=== PATIENT | male | born 1960 | race Caucasian/White ===

== ENCOUNTER 2019-02-21 08:04 | Inpatient (IN) ==
[2019-02-21] MEDS ORDERED: RAPID SEQUENCE INDUCTION BAG ONE (08:09)
[2019-02-21] MEDS ORDERED: PIPERACILL/TAZOBAC CONSULT ACTIVE PRN (08:35)
[2019-02-21] MEDS ORDERED: VANCOMYCIN HCL 2,750 MG in SODIUM CHLORIDE 0.9% 500 ML IV ONE (08:35)
[2019-02-21] MEDS ORDERED: LEVOFLOXACIN/D5W 750 MG/150 ML BAG IV STA (08:35)
[2019-02-21] MEDS ORDERED: PIPERACILLIN/TAZOBACTAM 4.5 GM/120 ML BAG IV ONE (08:35)
[2019-02-21] MEDS ORDERED: VANCOMYCIN CONSULT ACTIVE PRN (08:35)
--- NOTE | 2019-02-21 08:42 | XRay Report ---
SINGLE VIEW CHEST CLINICAL HISTORY: Intubation. Cardiac arrest. FINDINGS: An AP, portable, supine chest radiograph is obtained No prior studies are available for [facility] at the time of dictation. The examination is degraded by portable technique, motion artifact, and patient rotation. An endotracheal tube has been placed. The tip terminates 2 cm above the serjio . The heart is enlarged. There is pulmonary vascular congestion. There are bilateral airspace opaciti es, most confluent at the right lung base. No large pleural effusion or pneumothorax is seen. There i s a nondistracted right lateral 5th rib fracture. IMPRESSION: 1. Cardiomegaly with evidence of congestive failure. 2. Bilateral airspace opacities likely represent a component of interstitial edema. This is most conf luent at the right lung base, and a superimposed infectious/inflammatory pneumonitis is not excluded. Clinical correlation will be required. 3. There is a nondistracted right lateral 5th rib fracture. 4. An endotracheal tube terminates 2 cm above the serjio. Electronically signed by: Herber Diggs M.D. 02/21/2019 8:41 AM
[2019-02-21 08:44] LABS: iSTAT Creatinine 1.9 mg/dl (0.6-1.3); iSTAT Hemoglobin 10.9 g/dl (14.0-18.0); iSTAT Ionized Calcium 1.07 mmol/l (1.12-1.32); iSTAT Potassium 4.3 mEq/L (3.3-5.0)
[2019-02-21 08:47] LABS: Alanine Aminotransferase 661 U/L (12-78); Albumin Level 2.5 gm/dl (3.4-5.0); Blood Urea Nitrogen 37 mg/dl (7-18); Calcium 9.2 mg/dl (8.5-10.1); Carbon Dioxide 31 mmol/L (21-32); Chloride 95 mmol/L (98-107); Est GFR (African American) 35.2; Est GFR (Non-African American) 30.4; Glucose 149 mg/dl (70-99); Potassium 4.4 mmol/L (3.5-5.1); Sodium 144 mmol/L (136-145)
[2019-02-21 08:48] LABS: INR 1.4 (0.9-1.1); Partial Thromboplastin Ratio 1.1; Prothrombin Time 14.4 Seconds (9.0-12.0)
[2019-02-21 08:54] LABS: Albumin Globulin Ratio 0.6 (0.9-2); Alkaline Phosphatase 109 U/L (45-117); Bilirubin,Total 0.7 mg/dl (0.2-1); Creatine Kinase 104 U/L (39-308); Creatine Kinase MB < 1.0 ng/ml (0.5-3.6); Globulin 3.9 gm/dl (2.5-4.0); Total Protein 6.4 gm/dl (6.4-8.2); Troponin I 0.018 ng/ml (0-0.045)
[2019-02-21 08:56] LABS: Hematocrit (blood only) 36.4 % (42-52); Mean Corpuscular Hgb Conc 27.5 g/dL (32-36); Mean Corpuscular Volume 99.7 fL (80-100); Mean Platelet Volume 10.4 fL (7.4-10.4); Nucleated RBC # (auto) 0.12 K/uL (0-0); Nucleated RBC % (auto) 1.1 %; Platelet Count 293 K/uL (130-400); RDW Coefficient of Variation 15.2 % (11.5-14.5); RDW Standard Deviation 56.2 fL (36.4-46.3); Red Blood Count 3.65 M/uL (4.7-6.1); White Blood Count 10.95 K/uL (4.8-10.8)
[2019-02-21] MEDS ORDERED: EPINEPHrine 4 MG in DEXTROSE 5% BRADYCARDIA IV SCH (09:00)
[2019-02-21] MEDS ORDERED: TRAMADOL HCL 50 MG TABLET NG PRN (09:05)
[2019-02-21] MEDS ORDERED: MEPERIDINE HCL 25 MG/ML CARP IV PRN (09:05)
[2019-02-21] MEDS ORDERED: BusPIRone 15 MG TAB NG PRN (09:05)
[2019-02-21] MEDS ORDERED: ARTIFICIAL TEARS OP OINT 3.5 GM TUBE OP PRN (09:05)
[2019-02-21] MEDS ORDERED: DOPAMINE / D5W 400 MG/250 ML BAG IV SCH (09:15)
--- NOTE | 2019-02-21 09:29 | History & Physical Report ---
Date of Service February 21, 2019 Assessment & Plan (1) Sudden cardiac arrest: - Admit to ICU - S/p cardiac arrest now undergoing therapeutic hypothermia - Underwent total of 9 rounds of epinephrine, bicarb, and is now being maintained on dopamine drip. - Maintain ET tube - Being diuresed with IV Lasix as this appears to be partially due to pulmonary congestion. - Starting IV Zosyn, vancomycin until infectious work-up ruled out. - CT head revealing cerebral edema per radiologist - Follow CT abd/pelvis - Discussed with numerous family members who are in the ER waiting room privately by Dr. Nascimento regarding CT imaging results which were called to him directly from the radiologist showing poor prognosis with possible subarachnoid bleed and cerebral edema. - Consider consulting palliative medicine, and pastoral care support (2) Lactic acidosis: - Elevated at 15.6 upon arrival, now s/p resuscitation, will check again now (3) Acute and chronic respiratory failure with hypoxia: - Hx of such secondary to morbid obesity (4) COPD (chronic obstructive pulmonary disease): - Hx of such, uses ventolin as outpatient - Maintains on 3L O2 at baseline, CPAP HS (5) Afib: - Chronic, dx earlier this month during hospital stay at [facility] from February 02- - On xarelto - last took this medication last evening. - hold with possible brain hemmorhage (6) Morbid obesity: - weight upon admit was over 175 kg, BMI not obtained. (7) SABRA (obstructive sleep apnea): - CPAP as above (8) HTN (hypertension): - Maintain BP with continuous BP monitoring - Dopamine infusion on for initially hypotensive. S/p multiple rounds of epi as above. - Takes metoprolol succinate at home, last dose yesterday (9) Obesity hypoventilation syndrome: (10) Elevated transaminase level: - AST = 803 and RIF=197, INR = 1.4, trend morning LFTs (11) DVT prophylaxis: teds, scds, holding xarelto for now Dispo: From home, poor prognosis, likely to be in hospital for several days at least. History of Present Illness Primary Care Provider: Donnie Nayak This is a 58 yo M with PMHx of morbid obesity, acute hypoxic respiratory failure, DM II, COPD on chronic O2, chronic afib on xarelto s/p cardiac arrest and resuscitation. The patient's family was seen in the ER waiting room, including multiple daughters, son, wyatt and brother who supported the history. The patient's brother notes that he has traveled from [place] and arrived in the home yesterday. Wyatt notes that the patient has been having worsening shortness of breath x3 days. They state that yesterday the patient appeared "delirious and out of things". He was having increased work of breathing with minimal activity yesterday. They used a home pulse ox which revealed bradycardia with a heart rate in the 50s yesterday, and oxygenation in the 80s. At that point in time it was in the evening and patient was placed on nasal CPAP, as he has not been able to tolerate CPAP mask due to facial shape. This improved pulse ox readings, and the patient reported that he felt fine and wanted to stay home. They did discuss possibly going to a hospital last evening however the patient thought that he would try through the night. Patient's fianc sleeps in the same room as the patient and reports that last time known well was at 0300. At approximately 6 AM patient was found to be unresponsive by wyatt, brother proceeded to perform CPR. Prolonged transport on the way to [facility] occurred and pt was not intubated during that time due to difficult intubation. Intubation successful here in the ER. Patient's family notes that he was recently admitted from February 02- at [facility] for fluid overload and new onset A. fib where he was placed on xarelto. The patient underwent total of 9 rounds of epinephrine, bicarb, and is now being maintained on dopamine drip. He is being diuresed with IV Lasix as this appears to be partially due to pulmonary congestion. The patient has been administered IV Zosyn, vancomycin until infectious work-up ruled out. Admit to the ICU Allergies Allergy/AdvReac Type Severity Reaction Status Date / Time No Known Allergies Allergy Mild Unverified 12/26/07 07:57 Home Medications Home Medications Medication Instructions Recorded Confirmed Type Albuterol (Proair Hfa) 2 puff INHALATION PRN #0 01/18/15 History FLUTICASONE PROP/SALMETEROL 1 puff INHALATION BID #0 inhaler 01/18/15 History (Advair Diskus 250/50 60 Dose) FUROSEMIDE (Lasix) 80 mg PO DAILY #0 tab 06/23/15 History HOME O2 THERAPY (Oxygen) 4 liters NA UD #0 01/18/15 History Metoprolol Succ (Toprol Xl) 100 mg PO DAILY #0 tab 01/18/15 History (Toprol-Xl ) Nitroglycerin (Nitrostat) 0.4 mg UT PRN #0 btl 01/18/15 History Past Med/Surg History Medical History Lactic acidosis Elevated transaminase level Obesity hypoventilation syndrome HTN (hypertension) Sudden cardiac arrest SABRA (obstructive sleep apnea) Morbid obesity Afib COPD (chronic obstructive pulmonary disease) Acute and chronic respiratory failure with hypoxia Abdominal pain (Acute) Small bowel obstruction (Acute) Surgical History History of hernia surgery (Resolved) Social History Preferred Language: Cameroonian marital status: Single Current Living Situation: Alone current occupational status: unemployed Feels Safe at Home: Yes Smoking Status: Unknown if ever smoked Review of Systems Review of Systems: Unobtainable due to endotracheal tube Physical Exam Physical Exam: General: sedated, not awake, ventilated, morbidly obese Head: Normocephalic, atraumatic ENT: Dilated pupils bilaterally, pharynx not evaluated due to intubated Chest: +ventilated, coarse breath sounds throughout Cardiac: tachycardic, JVD difficult to assess due to body habitus, normal peripheral pulses Abdominal: NABS x 4 quadrants,+ large abdomen + ventral hernia Extremities: Normal inspection, 1+ to 2+ peripheral edema Psych: Sedated so not able to assess Neuro: not awake due to sedation Results & Data Vital Signs (Past 12 Hours) Vital Signs Pulse Pulse Resp BP BP Pulse Ox 02/21/19 09:05 122 H 17 107/73 97 02/21/19 08:50 114 H 119 H 20 106/61 95 02/21/19 08:45 119 H 16 96/55 L 96 02/21/19 08:40 108 H 16 80/49 L 95 02/21/19 08:38 105 H 16 74/54 L 95 02/21/19 08:31 104 H 13 107/57 L 97 02/21/19 08:13 33 L 12 144/118 H 65 L Supervising Physician Co-Signing Physician Notes PA Physician Supervision Note: I interviewed and examined the patient. Discussed with Selene Filipowicz PAC and agree with findings and plan as documented in the note. Any exceptions or clarifications are listed here: None Patient was seen in the emergency department he is intubated. His pupils are dilated and fixed. Apparently he had a fairly prolonged downtime without ventilation due to his body size. Last time known well was around 3 AM. Reportedly his family attempted to do CPR at home but had a difficult time clearing his airway. Additionally EMS services also had challenges. Patient was intubated in the emergency department he is currently being ventilated he is in sinus rhythm with tachycardia he has significant diffuse cerebral changes seen on CT scan initially concern for subarachnoid bleeding however reread feels this may be all just cerebral edema. There is discussion in place with family whether to pursue palliative care at this point time we are going to pursue therapeutic hypothermia and supportive care further ongoing discussions with the family while in the ICU. I did evaluate the patient he is on not responsive to pain pupils are fixed and dilated did not react to light cardiac exam is regular tachycardic his lungs are coarse bilaterally he is morbidly obese with a protuberant abdomen easily felt hernia ventrally. Extremities are with 1-2+ edema his toes are equivocal no other neurological exam will be undertaken Prognosis is extremely poor I will personally discussed this case with intensive care attending as they will be doing the bulk of the management after transition from the ER Documented By: Redd Sanchez PG Care Time/CCT Total # of Minutes Spent Total Time Spent with Patient: Total time spent is greater than 50% in coordination of care (as documented) at patient's floor/unit and/or counseling patient:
[2019-02-21 09:43] LABS: Basophils # (auto) 0.02 K/uL (0-0.2); Basophils % (auto) 0.2 %; Eosinophils # (auto) 0.02 K/uL (0-0.5); Eosinophils % (auto) 0.2 %; Immature Granulocytes # (auto) 0.15 K/uL (0.00-0.02); Immature Granulocytes % (auto) 1.4 %; Lymphocytes # (auto) 1.04 K/uL (1.2-3.4); Lymphocytes % (auto) 9.5 %; Monocytes # (auto) 0.43 K/uL (0.11-0.59); Monocytes % (auto) 3.9 %; Neutrophils # (auto) 9.29 K/uL (1.4-6.5); Neutrophils % (auto) 84.8 %
[2019-02-21] MEDS ORDERED: OPTIRAY 320 125ml IV PRN (09:44)
[2019-02-21 09:45] LABS: Magnesium 3.2 mg/dl (1.8-2.4); Phosphorus 11.4 mg/dl (2.5-4.9)
[2019-02-21] MEDS: MAGNESIUM SULFATE / D5W 1 GM/100 ML BAG IV SCH ×4 (10:16→14:56)
--- NOTE | 2019-02-21 10:27 | CT Scan Report ---
CT ANGIOGRAM OF THE CHEST; CT SCAN OF THE ABDOMEN AND PELVIS WITH IV CONTRAST CLINICAL HISTORY: Cardiac arrest. COMPARISON STUDY: Chest x-ray dated 02/21/2019. Abdominal CT dated 01/18/2015. TECHNIQUE: Following the IV administration of 119 of Optiray 320, CT angiogram of the chest is perfor med from the upper abdomen to the thoracic inlet utilizing the pulmonary embolus protocol. Images are reviewed in the axial, sagittal, coronal planes. 3-D MIPS images are created and assessed. Subsequen tly, CT scan of the abdomen and pelvis was performed from the lung bases to the proximal femora. Imag es are reviewed in the axial, sagittal, and coronal planes. IV contrast was administered without comp lication. A dose lowering technique was utilized adhering to the principles of ALARA. The examination is degraded by large body habitus, and by streak artifact from the body wall abutting the CT gantry. FINDINGS: CHEST: Thyroid: Imaged portions of the thyroid gland are normal in size and attenuation. Thoracic aorta: There is mild atherosclerotic calcification of the thoracic aorta, which is normal in caliber and demonstrates standard 3-vessel arch anatomy. No dissection is seen. Pulmonary vasculature: The pulmonary trunk is normal in caliber. There are no filling defects identif ied in the main, lobar, or proximal segmental pulmonary arteries to indicate pulmonary embolus. Evalu ation of the peripheral branches is degraded by lack of contrast opacification and motion artifact. Heart: The heart is enlarged and without pericardial effusion. The coronary arteries are densely calc ified. Lungs and pleural spaces: The endotracheal tube terminates at the level of the serjio. Evaluation of the lung parenchyma is compromised by motion artifact. There is airspace consolidation seen throughou t the right lung, confluent at the right lung base. Patchy airspace consolidation is also seen throug hout the left lung. Diffuse intralobular septal thickening is noted. No pneumothorax is identified. Mediastinum: There are numerous subcentimeter mediastinal lymph nodes. These are not pathologically e nlarged by size criteria. Calcification containing nodes are noted. Eunice: There calcification containing hilar nodes. No hilar adenopathy is clearly identified. Axillae: There is no axillary lymphadenopathy. Bony thorax: There are acute right anterior 2nd through 6th rib fractures, as well as acute left ante rior 2nd through 7th rib fractures. Several of these are mildly distracted. No lytic or blastic lesio ns are identified. Soft tissues: Gynecomastia is noted. ABDOMEN AND PELVIS: Liver: The contrast-enhanced liver is there is mild lumbosacral spondylosis. Enlarged, measuring 18.5 cm in length. Liver demonstrates diffusely imaged attenuation consistent with hepatic steatosis. The re is no intrahepatic or ductal dilatation. The hepatic veins and portal veins are patent. Gallbladder: There are large calcified gallstones, with no CT evidence of acute cholecystitis. Spleen: Normal in size and attenuation. Pancreas: Unremarkable. Adrenal glands: Degenerative glands appear hyperemic which can be seen in the setting of hypovolemia/ shock. Kidneys: The contrast enhanced kidneys are normal in size and without hydronephrosis. The kidneys enh ance symmetrically. A 13 mm exophytic cyst is noted arising from the right kidney. Abdominal vasculature: The abdominal aorta is normal in course and caliber noting moderate atheroscle rotic calcification. A left femoral central venous catheter is in place. Stomach and bowel: There is a tiny hiatal hernia. The stomach and duodenum otherwise normal in config uration. There is a large complex ventral hernia which contains nonobstructed bowel loops. No bowel o bstruction is seen. There is moderate colonic diverticulosis without CT evidence of acute diverticuli tis. Fecal retention is noted in the right colon. The appendix is well-visualized and normal. Peritoneum: There is no intraperitoneal free air or abdominal ascites. Lymphadenopathy: None. Pelvic viscera: The bladder is decompressed around a Boyce catheter and not well evaluated. The prost ate gland and seminal vesicles are normal as imaged. Skeletal structures: There is mild lumbosacral spondylosis. No lytic or blastic lesions are seen. . IMPRESSION: 1. There is no evidence of central pulmonary embolus in the main, lobar, or proximal segmental pulmon gretta arteries. 2. The endotracheal tube terminates at the level of the serjio. This should be pulled back. 3. Cardiomegaly with evidence of congestive failure. 4. There is bilateral airspace consolidation, right greater than left. This is diffuse throughout the right lung and confluent at the right lung base. Although some of this likely represents interstitia l edema, correlate clinically for evidence of superimposed pneumonia/aspiration pneumonitis. 5. There are numerous bilateral rib fractures as above. 6. There are no acute infectious or inflammatory findings in the abdomen or pelvis. 7. The adrenal glands appear hyperemic. This is a nonspecific finding and can be seen in the setting of hypovolemia/shock. 8. Hepatomegaly and hepatic steatosis. 9. Cholelithiasis. 10. There is a large complex ventral hernia which contains nonobstructed small bowel loops. 11. Moderate colonic diverticulosis without CT evidence of acute diverticulitis. 12. Additional findings as above Electronically signed by: Herber Diggs M.D. 02/21/2019 10:25 AM
--- NOTE | 2019-02-21 10:32 | CT Scan Report ---
CT SCAN OF THE BRAIN WITHOUT IV CONTRAST CLINICAL HISTORY: Status post cardiac arrest. COMPARISON STUDY: No priors. TECHNIQUE: Unenhanced axial CT scan of the brain is performed from the vertex to the skull base. A d ose lowering technique was utilized adhering to the principles of ALARA. CT DOSE: 4388.66 mGy.cm FINDINGS: Brain parenchyma: There is diffuse loss of kevin-white matter differentiation consistent with diffuse cerebral edema. This effaces the cortical sulci and ventricles. No hemorrhage is clearly identified. Intracranial vessels appear hyperdense, likely due to diffuse edema. There is no midline shift. No ex tra-axial fluid collection is seen. There is crowding of the cerebellar tonsils at the foramen magnum . Ventricles, sulci, cisterns: Diminutive. See above. Intracranial vasculature: The visualized intracranial vasculature at the skull base are grossly unrem arkable. Calvarium: A 14 mm lucency within the right frontal convexity is indeterminant and may represent a fo cus of fibrous dysplasia. The calvarium is otherwise intact. Sinuses and mastoids: Trace fluid is seen in the left maxillary antrum. Moderate mucosal thickening i s noted in the ethmoid sinuses. Trace mucosal thickening is seen in the left frontal sinus. There are large bilateral mastoid effusions. Orbits: The bony orbits are grossly intact. IMPRESSION: 1. Findings are consistent with diffuse cerebral edema. 2. There is no clear CT evidence of hemorrhage. 3. There is crowding of the cerebellar tonsils at the foramen magnum which may represent impending he rniation. 4. Large mastoid effusions. Findings were discussed with Dr. Nascimento in the emergency department at the time of interpretation. Electronically signed by: Herber Diggs M.D. 02/21/2019 10:31 AM
--- NOTE | 2019-02-21 10:44 | XRay Report ---
KUB CLINICAL HISTORY: Enteric tube placement. FINDINGS: An AP, portable, supine radiograph of the lower chest and upper abdomen is correlated with abdominal CT performed the same day 02/21/2019. An enteric tube has been placed. The tip of the tube p rojects over the proximal stomach. The side holes are at the level of the diaphragm. There is no evid ence of bowel obstruction. The heart is enlarged. Airspace consolidation is noted throughout the righ t lower lung. Bilateral rib fractures are noted. IMPRESSION: 1. An enteric tube has been placed. The tip terminates below the diaphragm over the proximal stomach. The side holes are located at the level of the diaphragm and this should likely be advanced. 2. There is no evidence of bowel obstruction. 3. Dense airspace consolidation is seen at the right lung base. Electronically signed by: Herber Diggs M.D. 02/21/2019 10:43 AM
[2019-02-21] MEDS ORDERED: PERFLUTREN LIPID MICROSPHERE (DEFINITY) IV ONE (10:46)
[2019-02-21 10:50] LABS: Aspartate Aminotransferase 803 U/L (15-37)
[2019-02-21] MEDS ORDERED: GLUCOSE 10 TABS/TUBE PO PRN (11:12)
[2019-02-21] MEDS ORDERED: DEXTROSE 50% 50 ML SYRINGE IV PRN (11:12)
[2019-02-21] MEDS ORDERED: CARBOHYDRATES FOR HYPOGLYCEMIA PO PRN (11:12)
[2019-02-21] MEDS ORDERED: GLUCOSE 40% GEL 15 GM TUBE PO PRN (11:12)
[2019-02-21] MEDS ORDERED: GLUCAGON FOR INJ 1 MG VIAL SQ PRN (11:12)
[2019-02-21] MEDS ORDERED: PHARMACY GLYCEMIC MGMT CONSULT PRN (11:24)
--- NOTE | 2019-02-21 11:45 | Critical Care Consultation ---
Date of Consultation February 21, 2019 Assessment & Plan (1) Admitted to intensive care unit: 58 years old male morbidly obese previous history of atrial fibrillation was recently discharged from the [facility] was brought into the hospital after cardiopulmonary arrest. Neuro: The patient is post cardiopulmonary arrest. It seems he was hypoxemic for sometimes and currently he is comatose pupils are dilated and fixed and now CT of the head revealed cerebral edema and impending herniation. The patient is not sedated. Respiratory: The patient is post cardiopulmonary arrest. He is in acute respiratory failure. Currently the patient remains on ventilator on 100% FiO2 and 10 of PEEP. He is oxygenating around 92 to 93%. We will repeat the ABG will put a close monitoring on the patient. Patient might be chronically hypercapnic because his bicarb is also elevated. The patient also has a history of obstructive sleep apnea syndrome along with obesity related hypoventilation syndrome and he is on CPAP at home. Cardiac: The patient has history of atrial fibrillation. He was recently started on anticoagulation. According to the family members he has been sick for at least 3 days with increasing shortness of breath hypoxemic bradycardic and also delirious but he did not want to come to the hospital and he coded. Postcode he was brought into the hospital intubated and currently he remains on a ventilator. He is also on hypothermia protocol. Family members were informed about the condition and they would like everything to be done at this stage. He will be also ruled out for myocardial infarction. But at this stage it seems he has got pulmonary edema and he has been also diuresed with the Lasix. We will also consult cardiology. The patient was on Xarelto. GI: The patient is morbidly obese. He probably has upper GI bleed because when we put the NG tube there was so much blood has come out. We also going to start him on Protonix IV drip. The bleeding could be related to Xarelto as well. The Xarelto is on hold. His transaminase levels are also elevated. Renal: The patient is putting out good urine. His BUN/creatinine is elevated to 41/2.41. We are going to monitor him very closely. He was hypotensive and was started on dopamine. We have changed dopamine to Levophed. We are monitoring his blood pressure with a map of 65. I have also noticed that his bicarb is 35 so he must be chronically hypercapnic. He has also history of's sleep apnea syndrome and he is on home CPAP. Hematology: The patient has normal white count 10.69 and stable H&H and stable platelets. ID: The patient was empirically started on broad-spectrum antibiotics because of elevated lactate and hypotension but I feel as all related to his current cardiopulmonary arrest secondary to cardiac history and possibility of congestive heart failure which he would not take care of it. We will monitor the lactic acid which has been drawn again and we are waiting for the results. Endocrine: The patient is with hyperglycemia. He is on ICU glycemic control. (2) Acute anoxic encephalopathy: (3) Cardiopulmonary arrest with successful resuscitation: (4) Lactic acidosis: (5) DVT prophylaxis: (6) SABRA (obstructive sleep apnea): (7) Acute and chronic respiratory failure with hypoxia: (8) COPD (chronic obstructive pulmonary disease): (9) Afib: (10) Morbid obesity: History of Present Illness Reason for Consultation: Cardiopulmonary arrest Requesting Physician: Jose Elias Abdullahi MD Attending Physician: Jose Elias Abdullahi MD History of Present Illness This is a 58 yo M with PMHx of morbid obesity, acute hypoxic respiratory failure, DM II, COPD on chronic O2, chronic afib on xarelto s/p cardiac arrest and resuscitation. The patient's family was seen in the ER waiting room, including multiple daughters, son, wyatt and brother who supported the history. The patient's brother notes that he has traveled from [place] and arrived in the home yesterday. Wyatt notes that the patient has been having worsening shortness of breath x3 days. They state that yesterday the patient appeared "delirious and out of things". He was having increased work of breathing with minimal activity yesterday. They used a home pulse ox which revealed bradycard ia with a heart rate in the 50s yesterday, and oxygenation in the 80s. At that point in time it was in the evening and patient was placed on nasal CPAP, as he has not been able to tolerate CPAP mask due to facial shape. This improved pulse ox readings, and the patient reported that he felt fine and wanted to stay home. They did discuss possibly going to a hospital last evening however the patient thought that he would try through the night. Patient's wyatt sleeps in the same room as the patient and reports that last time known well was at 0300. At approximately 6 AM patient was found to be unresponsive by wyatt, brother proceeded to perform CPR. Prolonged transport on the way to [facility] occurred and pt was not intubated during that time due to difficult intubation. Intubation successful here in the ER. Patient's family notes that he was recently admitted from February 02- at [facility] for fluid overload and new onset A. fib where he was placed on xarelto. The patient underwent total of 9 rounds of epinephrine, bicarb, and is now being maintained on dopamine drip. He is being diuresed with IV Lasix as this appears to be partially due to pulmonary congestion. The patient has been unresponsive with dilated and fixed pupils. Currently he is not sedated he remains on a ventilator. He is not responsive to any painful stimuli. He is breathing with a ventilator. Also he is on Levophed for the pressors. We have reviewed his CT scan of the head which revealed diffuse edema impending herniation. He has NG tube and he has been bleeding from that as well. Patient was recently started on Xarelto because of atrial fibrillation. Allergies Allergy/AdvReac Type Severity Reaction Status Date / Time No Known Allergies Allergy Mild Unverified 12/26/07 07:57 Home Medications Home Medications Medication Instructions Recorded Confirmed Type Albuterol (Proair Hfa) 2 puff INHALATION PRN #0 01/18/15 History FLUTICASONE PROP/SALMETEROL 1 puff INHALATION BID #0 inhaler 01/18/15 History (Advair Diskus 250/50 60 Dose) FUROSEMIDE (Lasix) 80 mg PO DAILY #0 tab 01/18/15 History HOME O2 THERAPY (Oxygen) 4 liters NA UD #0 01/18/15 History Metoprolol Succ (Toprol Xl) 100 mg PO DAILY #0 tab 01/18/15 History (Toprol-Xl ) Nitroglycerin (Nitrostat) 0.4 mg UT PRN #0 btl 01/18/15 History Patient History Medical History Lactic acidosis Elevated transaminase level Obesity hypoventilation syndrome HTN (hypertension) Sudden cardiac arrest SABRA (obstructive sleep apnea) Morbid obesity Afib COPD (chronic obstructive pulmonary disease) Acute and chronic respiratory failure with hypoxia Abdominal pain (Acute) Small bowel obstruction (Acute) Surgical History History of hernia surgery (Resolved) Social History Preferred Language: Filipino marital status: Single Current Living Situation: Alone current occupational status: unemployed Feels Safe at Home: Yes Smoking Status: Unknown if ever smoked Review of Systems Review of Systems: Unable to obtain review of systems because of current medical condition and mental status. Physical Exam Physical Exam: General: Comatose morbidly obese male, not awake, ventilated. The patient is not on any sedation. Head: Normocephalic, atraumatic ENT: Dilated pupils bilaterally and there are fixed, pharynx not evaluated due to intubated Chest: +ventilated, coarse breath sounds throughout, diminished breath sound Cardiac: tachycardic, JVD difficult to assess due to body habitus, distant heart sounds secondary to body habitus. Abdominal: Morbidly obese abdomen soft, nontender, unable to palpate any organs and a big scar paraumbilical from before. Extremities: Normal inspection, 1+ to 2+ peripheral edema Psych: Unable to assess because of current medical condition. The patient is comatose. Neuro: The patient remains comatose not able to assess at this stage. Skin: No rash, no lesions seen. Results & Data Vital Signs (Past 12 Hours) Vital Signs Temp Pulse Pulse Resp BP BP Pulse Ox 02/21/19 10:20 112 H 17 103/56 L 94 02/21/19 10:05 35.5 C L 111 H 16 111/56 L 93 02/21/19 09:05 122 H 17 107/73 97 02/21/19 08:50 114 H 119 H 20 106/61 95 02/21/19 08:45 119 H 16 96/55 L 96 02/21/19 08:40 108 H 16 80/49 L 95 02/21/19 08:38 105 H 16 74/54 L 95 02/21/19 08:31 104 H 13 107/57 L 97 02/21/19 08:13 33 L 12 144/118 H 65 L Laboratory Results Abnormal lab results 02/21/19 02/21/19 02/21/19 Range/Units 08:15 08:20 08:20 WBC 10.95 H (4.8-10.8) K/uL RBC 3.65 L (4.7-6.1) M/uL Hgb 10.0 L (14.0-18.0) g/dL POC Hgb (14.0-18.0) g/dl Hct 36.4 L (42-52) % POC Hct (42-52) % MCHC 27.5 L (32-36) g/dL RDW Std Deviation 56.2 H (36.4-46.3) fL RDW Coeff of Liyah 15.2 H (11.5-14.5) % Immature Gran # (Auto) 0.15 H (0.00-0.02) K/uL Neut # (Auto) 9.29 H (1.4-6.5) K/uL Lymph # (Auto) 1.04 L (1.2-3.4) K/uL Absolute Nucleated RBC 0.12 H (0-0) K/uL PT 14.4 H (9.0-12.0) Seconds INR 1.4 H (0.9-1.1) POC Chloride (101-112) mEq/L Chloride (98-107) mmol/L POC Total CO2 (24-31) mEq/l Anion Gap (3-11) POC BUN (7-18) mg/dl BUN (7-18) mg/dl Creatinine (0.6-1.4) mg/dl POC Creatinine (0.6-1.3) mg/dl Glucose (70-99) mg/dl POC Glucose (other) (70-99) mg/dl Lactate 15.6 H* (0.4-2.0) mmol/L POC Ioniz Calcium Ilia (1.12-1.32) mmol/l Phosphorus (2.5-4.9) mg/dl Magnesium (1.8-2.4) mg/dl AST (15-37) U/L ALT (12-78) U/L Albumin (3.4-5.0) gm/dl Albumin/Globulin Ratio (0.9-2) 02/21/19 02/21/19 02/21/19 Range/Units 08:20 08:20 08:29 WBC (4.8-10.8) K/uL RBC (4.7-6.1) M/uL Hgb (14.0-18.0) g/dL POC Hgb 10.9 L (14.0-18.0) g/dl Hct (42-52) % POC Hct 32 L (42-52) % MCHC (32-36) g/dL RDW Std Deviation (36.4-46.3) fL RDW Coeff of Liyah (11.5-14.5) % Immature Gran # (Auto) (0.00-0.02) K/uL Neut # (Auto) (1.4-6.5) K/uL Lymph # (Auto) (1.2-3.4) K/uL Absolute Nucleated RBC (0-0) K/uL PT (9.0-12.0) Seconds INR (0.9-1.1) POC Chloride 92 L (101-112) mEq/L Chloride 95 L (98-107) mmol/L POC Total CO2 33 H (24-31) mEq/l Anion Gap 18.0 H (3-11) POC BUN 43 H (7-18) mg/dl BUN 37 H (7-18) mg/dl Creatinine 2.30 H (0.6-1.4) mg/dl POC Creatinine 1.9 H (0.6-1.3) mg/dl Glucose 149 H (70-99) mg/dl POC Glucose (other) 148 H (70-99) mg/dl Lactate (0.4-2.0) mmol/L POC Ioniz Calcium Ilia 1.07 L (1.12-1.32) mmol/l Phosphorus 11.4 H (2.5-4.9) mg/dl Magnesium 3.2 H (1.8-2.4) mg/dl AST 803 H (15-37) U/L ALT 661 H (12-78) U/L Albumin 2.5 L (3.4-5.0) gm/dl Albumin/Globulin Ratio 0.6 L (0.9-2) // Range/Units 11:40 WBC (4.8-10.8) K/uL RBC 3.84 L (4.7-6.1) M/uL Hgb 10.7 L (14.0-18.0) g/dL POC Hgb (14.0-18.0) g/dl Hct 37.2 L (42-52) % POC Hct (42-52) % MCHC 28.8 L (32-36) g/dL RDW Std Deviation 54.1 H (36.4-46.3) fL RDW Coeff of Liyah 15.1 H (11.5-14.5) % Immature Gran # (Auto) (0.00-0.02) K/uL Neut # (Auto) (1.4-6.5) K/uL Lymph # (Auto) (1.2-3.4) K/uL Absolute Nucleated RBC (0-0) K/uL PT (9.0-12.0) Seconds INR (0.9-1.1) POC Chloride (101-112) mEq/L Chloride (98-107) mmol/L POC Total CO2 (24-31) mEq/l Anion Gap (3-11) POC BUN (7-18) mg/dl BUN (7-18) mg/dl Creatinine (0.6-1.4) mg/dl POC Creatinine (0.6-1.3) mg/dl Glucose (70-99) mg/dl POC Glucose (other) (70-99) mg/dl Lactate (0.4-2.0) mmol/L POC Ioniz Calcium Ilia (1.12-1.32) mmol/l Phosphorus (2.5-4.9) mg/dl Magnesium (1.8-2.4) mg/dl AST (15-37) U/L ALT (12-78) U/L Albumin (3.4-5.0) gm/dl Albumin/Globulin Ratio (0.9-2) Diagnostic Findings CT SCAN OF THE BRAIN WITHOUT IV CONTRAST CLINICAL HISTORY: Status post cardiac arrest. COMPARISON STUDY: No priors. TECHNIQUE: Unenhanced axial CT scan of the brain is performed from the vertex to the skull base. A dose lowering technique was utilized adhering to the principles of ALARA. CT DOSE: 4388.66 mGy.cm FINDINGS: Brain parenchyma: There is diffuse loss of kevin-white matter differentiation co nsistent with diffuse cerebral edema. This effaces the cortical sulci and ventricles. No hemorrhage is clearly identified. Intracranial vessels appear hyperdense, likely due to diffuse edema. There is no midline shift. No extra- axial fluid collection is seen. There is crowding of the cerebellar tonsils at the foramen magnum. Ventricles, sulci, cisterns: Diminutive. See above. Intracranial vasculature: The visualized intracranial vasculature at the skull base are grossly unremarkable. 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 The calvarium is otherwise intact. Sinuses and mastoids: Trace fluid is seen in the left maxillary antrum. Moderate mucosal thickening is noted in the ethmoid sinuses. Trace mucosal thickening is seen in the left frontal sinus. There are large bilateral mastoid effusions. Orbits: The bony orbits are grossly intact. IMPRESSION: 1. Findings are consistent with diffuse cerebral edema. 2. There is no clear CT evidence of hemorrhage. 3. There is crowding of the cerebellar tonsils at the foramen magnum which may represent impending herniation. 4. Large mastoid effusions. Findings were discussed with Dr. Nascimento in the emergency department at the time of interpretation. Electronically signed by: Herber Diggs M.D. 02/21/2019 10:31 AM Medications Administered Current Inpatient Medications Buspirone HCl (Buspar) 60 mg NG ONCE PRN PRN Reason: For Shivering x 1 dose Stop: 03/23/19 09:04 Dextrose (Dextrose 50%) 25 - 50 ml IV UD PRN; Protocol PRN Reason: Hypoglycemia Protocol Stop: 03/23/19 11:11 Glucagon (Glucagen) 1 mg SQ UD PRN; Protocol PRN Reason: Hypoglycemia Protocol Stop: 03/23/19 11:11 Glucose (Dex4 Glucose) 4 - 8 tabs PO UD PRN; Protocol PRN Reason: Hypoglycemia Protocol Stop: 03/23/19 11:11 Glucose (Glucose 40%) 15 - 30 gm PO UD PRN; Protocol PRN Reason: Hypoglycemia Protocol Stop: 03/23/19 11:11 Epinephrine HCl 4 mg/ Dextrose 254 mls @ 0 mls/hr IV .Q0M VERONICA; Protocol Stop: 03/23/19 08:59 Dopamine HCl/Dextrose (Dopamine / D5w) 400 mg in 250 mls @ 32.813 mls/hr IV .Q7H38M VERONICA; Protocol Stop: 03/23/19 09:14 Last Titration: 02/21/19 08:40 Dose: 15 mcg/kg/min, 98.4 mls/hr Documented by: Magnesium Sulfate/Dextrose (Magnesium Sulfate / D5w) 1 gm in 100 mls @ 100 mls/hr IV Q1H VERONICA Stop: 02/21/19 13:29 Last Admin: 02/21/19 10:16 Dose: 100 mls/hr Documented by: Norepinephrine Bitartrate 8 mg (/ Dextrose) 508 mls @ 0 mls/hr IV .Q0M VERONICA; Protocol Stop: 03/23/19 11:14 Insulin Aspart (Novolog Flexpen) 0 units SC Q4H VERONICA Stop: 03/23/19 11:59 Ioversol (Optiray 320 125ml) 119 ml IV ONCE PRN PRN Reason: Interaction Checking Stop: 02/25/19 09:43 Last Admin: 02/21/19 09:45 Dose: 119 ml Documented by: Meperidine HCl (Demerol) 25 mg IV Q2H PRN PRN Reason: Shivering Stop: 03/07/19 09:04 Miscellaneous (Carbohydrates For Hypoglycemia) 15 - 30 gm PO UD PRN PRN Reason: Hypoglycemia Treatment Stop: 03/23/19 11:11 Miscellaneous Information (Consult) 1 ea N/A UD PRN PRN Reason: Consult Stop: 03/23/19 08:34 Miscellaneous Information (Consult) 1 ea N/A UD PRN PRN Reason: Consult Stop: 03/23/19 08:34 Miscellaneous Information (Consult Glycemic Management Pharmacy) 1 ea N/A UD PRN; Protocol PRN Reason: Consult Stop: 03/23/19 11:23 Multi-Ingredient Cream (Lacri-Lube) 1 appln OP Q2H PRN PRN Reason: eye protection Stop: 03/23/19 09:04 Tramadol HCl (Ultram) 50 mg NG Q6H PRN PRN Reason: Shivering Stop: 03/23/19 09:04 PG Care Time/CCT Total # of Minutes Spent Total Time Spent: 75 Total Time Spent with Patient: Total time spent is greater than 50% in coordination of care (as documented) at patient's floor/unit and/or counseling patient: I have also had a long discussion with the family members and also other medical physicians. Critical Care Time: Yes Total Critical Care Time: 75
[2019-02-21 11:59] LABS: Hematocrit (blood only) 37.2 % (42-52); Hemoglobin 10.7 g/dL (14.0-18.0); Mean Corpuscular Hgb Conc 28.8 g/dL (32-36); Mean Corpuscular Volume 96.9 fL (80-100); Mean Platelet Volume 9.9 fL (7.4-10.4); Platelet Count 232 K/uL (130-400); RDW Coefficient of Variation 15.1 % (11.5-14.5); RDW Standard Deviation 54.1 fL (36.4-46.3); Red Blood Count 3.84 M/uL (4.7-6.1); White Blood Count 10.69 K/uL (4.8-10.8)
[2019-02-21] MEDS ORDERED: INSULIN ASPART 100 UNITS/ML 3 ML PEN SC SCH (12:00)
[2019-02-21 12:10] LABS: BUN Creatinine Ratio 16.9 (10-20); Blood Urea Nitrogen 41 mg/dl (7-18); Calcium 9.1 mg/dl (8.5-10.1); Carbon Dioxide 35 mmol/L (21-32); Chloride 91 mmol/L (98-107); Est GFR (African American) 33.3; Est GFR (Non-African American) 28.7; Glucose 179 mg/dl (70-99); Magnesium 2.8 mg/dl (1.8-2.4); Potassium 4.1 mmol/L (3.5-5.1); Sodium 140 mmol/L (136-145)
[2019-02-21 12:17] LABS: Eosinophils # (auto) 0.01 K/uL (0-0.5); Eosinophils % (auto) 0.1 %; Immature Granulocytes # (auto) 0.04 K/uL (0.00-0.02); Immature Granulocytes % (auto) 0.4 %; Lymphocytes # (auto) 0.45 K/uL (1.2-3.4); Lymphocytes % (auto) 4.2 %; Monocytes # (auto) 0.86 K/uL (0.11-0.59); Neutrophils # (auto) 9.33 K/uL (1.4-6.5); Neutrophils % (auto) 87.3 %
[2019-02-21] MEDS: NOREPINEPHRINE BIT INJ 8 MG in DEXTROSE 5% 500 ML IV SCH ×2 (12:20→14:56)
--- NOTE | 2019-02-21 12:24 | XRay Report ---
KUB HISTORY: NG tube placement. COMPARISON: KUB 02/21/2019. FINDINGS: The bowel gas pattern is unremarkable. There are no dilated loops of small bowel to suggest an obstruction. No renal calculi. No ureteral calculi. No pneumoperitoneum or pneumatosis. Nasogast jurgen tube is been advanced and now terminates in the distal body of the stomach. The heart remains enl arged. IMPRESSION: Nasogastric tube terminates in the distal body of the stomach. Electronically signed by: Laci Sarabia M.D. 02/21/2019 12:22 PM
--- NOTE | 2019-02-21 12:26 | XRay Report ---
XR chest 1V portable HISTORY: respiratory failure COMPARISON: Chest 02/21/2019. FINDINGS: Endotracheal tube terminates 3 cm from the serjio. Nasogastric tube terminates below the di aphragm. No pneumothorax. Cardiomegaly and interstitial pulmonary edema persists. There are small srinath ateral pleural effusions and bibasilar densities. The patient's bilateral rib fractures are better ap preciated on the same day chest CT. IMPRESSION: 1. Interval progression of the pulmonary edema. 2. Small bilateral pleural effusions and bibasilar densities persist. 3. Satisfactory support line placement. Electronically signed by: Laci Sarabia M.D. 02/21/2019 12:24 PM
[2019-02-21 12:42] LABS: iSTAT Allen Test Pass; iSTAT Art Bld Gas pCO2 Correct 73 mmHg (35-46); iSTAT Art Bld Gas pH Corrected 7.306 (7.35-7.45); iSTAT Arterial Blood Gas HCO3 37 meg/L (19-24); iSTAT Arterial Blood Gas pCO2 79 mmHg (35-46); iSTAT Arterial Blood Gas pH 7.28 (7.35-7.45); iSTAT Carbon Dioxide 39 mEq/l (24-31); iSTAT Site R Radial
[2019-02-21 12:42] LABS: iSTAT Allen Test Pass; iSTAT Art Bld Gas pCO2 Correct 107 mmHg (35-46); iSTAT Art Bld Gas pH Corrected 7.147 (7.35-7.45); iSTAT Arterial Blood Gas HCO3 37 meg/L (19-24); iSTAT Arterial Blood Gas pCO2 110 mmHg (35-46); iSTAT Arterial Blood Gas pH 7.14 (7.35-7.45); iSTAT Carbon Dioxide > 40 mEq/l (24-31); iSTAT FiO2 100 %; iSTAT Site L Radial
[2019-02-21] MEDS ORDERED: PATIENT'S HEIGHT AND/OR WEIGHT NEEDED SCH (13:00)
--- NOTE | 2019-02-21 14:02 | Death Summary ---
Date of Service February 21, 2019 Pronouncement Note Date and Time of Date of : 02/21/19 Time of : 13:50 PCOD Preliminary cause of : Cerebral edema Contributing Factors (1) Sudden cardiac arrest: (2) Lactic acidosis: (3) Acute and chronic respiratory failure with hypoxia: (4) COPD (chronic obstructive pulmonary disease): (5) Afib: (6) Morbid obesity: (7) SABRA (obstructive sleep apnea): (8) HTN (hypertension): (9) Obesity hypoventilation syndrome: (10) Elevated transaminase level: (11) DVT prophylaxis: Summary Additional details: PT had a prolonged pre hospital resuscitation and difficult airway. Upon arrival did have airway secured. INitial CT scan of head suggested diffuse cerebral edema and concern for imminent herniation. Pt has therapeutic hypothermia initiated, family decided to pursue comfort measures, pt prior to that began to have progressive bradycardia and lost blood pressure and saturation, family was in the room and decided to not initiate resuscitation attempts, pt was removed from ventilator and did not have any spontaneous respirations or heart tones Additional Data Confirmation of : no pulse, no respirations, no heart sounds and pupils fixed and dilated Family: at bedside Attending/PCP notified?: Yes Attending physician: Redd Sanchez MD Was code activated?: No Autopsy requested?: No garment examiner notified?: Yes Organ bank notified?: Yes Advance directives: No Supervising Physician Co-Signing Physician Notes PA Physician Supervision Note: I interviewed and examined the patient. Discussed with Selene HOANG and agree with findings and plan as documented in the note. Any exceptions or clarifications are listed here: None Patient was seen in the emergency department he is intubated. His pupils are dilated and fixed. Apparently he had a fairly prolonged downtime without ventilation due to his body size. Last time known well was around 3 AM. Reportedly his family attempted to do CPR at home but had a difficult time clearing his airway. Additionally EMS services also had challenges. Patient was intubated in the emergency department he is currently being ventilated he is in sinus rhythm with tachycardia he has significant diffuse cerebral changes seen on CT scan initially concern for subarachnoid bleeding however reread feels this may be all just cerebral edema. There is discussion in place with family whether to pursue palliative care at this point time we are going to pursue therapeutic hypothermia and supportive care further ongoing discussions with the family while in the ICU. I did evaluate the patient he is on not responsive to pain pupils are fixed and dilated did not react to light cardiac exam is regular tachycardic his lungs are coarse bilaterally he is morbidly obese with a protuberant abdomen easily felt hernia ventrally. Extremities are with 1-2+ edema his toes are equivocal no other neurological exam will be undertaken Prognosis is extremely poor I will personally discussed this case with intensive care attending as they will be doing the bulk of the management after transition from the ER Documented By: Redd Sanchez
--- NOTE | 2019-02-21 14:08 | Emergency Department Note ---
Entered by Estella Morel acting as a scribe for History of Present Illness General Chief complaint: Cardiac Arrest/CPR Source: EMS Mode of arrival: EMS Limitations: other (unresponsive) History of Present Illness Location: chest Pain Consistency: + other (episode) Quality: + other (possible cardiac arrest) Associated symptoms: + other (loss of consciousness, loss of pulse, unresponsive) The patient is a 58 year old male that is presenting to the Emergency Room with complaints of an episode of suspected cardiac arrest that occurred over night. According to EMS, the patient was found by his girlfriend 1.5 hours ago around 0630 this morning. EMS reports that the patient's family stated that he was last known well 5 hours ago around 0300 this morning. EMS states that the patient's girlfriend noted that the patient was warm when she found him. EMS reports that the patients brother attempted CPR on the patient while they waited for EMS to arrive. The patient's brother reports that the patient measured his O2 saturation level last night and noted that it was around 47% at that time. His brother states that they were preparing to bring the patient to the ED as he had some associated disorientation and confusion. His brother notes that just prior to leaving the house the patient's O2 saturation level damion to 85%. His brother states that they decided to wait and see how the patient felt in the morning because the patient seemed to have improved. His brother reports that he spoke with his brother around 0300 this morning. His brother states that he was then woken up by the patient's girlfriend and informed of the patient's condition around 0630, EMS states that the patient received 7 doses of epinephrine and 3 bicarb prior to arrival to the ED. EMS notes that the patient was in sinus rhythm at a rate of 88bpm on arrival to the ER but states that the patient was in asystole when he was picked up at his home. Upon arrival, the patients BP was 144/118, pulse 33 bpm and O2 Sat 65% on mechanical vent. 25mg-Atropine was pushed at this time. CPR was started at 0816 when no pulse was found. A code blue was called 0817. Cardioversion occurred at 0824. A pulse was found at 0825. The patient received 3 doses of epi during CPR as well as 1 dose of bicarb. The HPI and ROS are limited secondary to the patients unresponsive status. Home Medications Home Medications Medication Instructions Recorded Confirmed Type Albuterol (Proair Hfa) 2 puff INHALATION PRN #0 01/18/15 History FLUTICASONE PROP/SALMETEROL 1 puff INHALATION BID #0 inhaler 01/18/15 History (Advair Diskus 250/50 60 Dose) FUROSEMIDE (Lasix) 80 mg PO DAILY #0 tab 01/18/15 History HOME O2 THERAPY (Oxygen) 4 liters NA UD #0 01/18/15 History Metoprolol Succ (Toprol Xl) 100 mg PO DAILY #0 tab 01/18/15 History (Toprol-Xl ) Nitroglycerin (Nitrostat) 0.4 mg UT PRN #0 btl 01/18/15 History Allergies Allergy/AdvReac Type Severity Reaction Status Date / Time No Known Allergies Allergy Mild Unverified 12/26/07 07:57 Past Med/Surg History Medical History Lactic acidosis Elevated transaminase level Obesity hypoventilation syndrome HTN (hypertension) Sudden cardiac arrest SABRA (obstructive sleep apnea) Morbid obesity Afib COPD (chronic obstructive pulmonary disease) Acute and chronic respiratory failure with hypoxia Abdominal pain (Acute) Small bowel obstruction (Acute) Surgical History History of hernia surgery (Resolved) Social History Preferred Language: [place]an marital status: Single Current Living Situation: Alone current occupational status: unemployed Feels Safe at Home: Yes Smoking Status: Unknown if ever smoked Review of Systems The HPI and ROS are limited secondary to the patient's unresponsive status. Physical Exam Vital Signs Vital Signs - 24 hr 02/21/19 08:09 02/21/19 08:13 02/21/19 08:31 Sepsis Recent Fever Within 48 Hours No Sepsis New/Unexplained Change in Mental Status No Sepsis Action Taken by Nursing No Action Required End-Tidal CO2 Pulse Rate 33 L Pulse Rate [Apical] 104 H Respiratory Rate 12 13 Respiratory Effort / Characteristics Mechanically Ventilated Mechanically Ventilated Mechanically Ventilated Blood Pressure 144/118 H Blood Pressure [Right Arm] 107/57 L Blood Pressure Mean 126 Blood Pressure Mean [Right Arm] 73 Pulse Oximetry 65 L 97 Oxygen Delivery Method Mechanical Vent Mechanical Vent Fraction of Inspired Oxygen 02/21/19 08:38 02/21/19 08:40 02/21/19 08:45 Sepsis Recent Fever Within 48 Hours Sepsis New/Unexplained Change in Mental Status Sepsis Action Taken by Nursing End-Tidal CO2 Pulse Rate Pulse Rate [Apical] 105 H 108 H 119 H Respiratory Rate 16 16 16 Respiratory Effort / Characteristics Mechanically Ventilated Mechanically Ventilated Mechanically Ventilated Blood Pressure Blood Pressure [Right Arm] 74/54 L 80/49 L 96/55 L Blood Pressure Mean Blood Pressure Mean [Right Arm] 60 59 68 Pulse Oximetry 95 95 96 Oxygen Delivery Method Mechanical Vent Mechanical Vent Mechanical Vent Fraction of Inspired Oxygen 02/21/19 08:50 02/21/19 09:05 Sepsis Recent Fever Within 48 Hours Sepsis New/Unexplained Change in Mental Status Sepsis Action Taken by Nursing End-Tidal CO2 70 Pulse Rate 114 H Pulse Rate [Apical] 119 H 122 H Respiratory Rate 20 17 Respiratory Effort / Characteristics Mechanically Ventilated Blood Pressure Blood Pressure [Right Arm] 106/61 107/73 Blood Pressure Mean Blood Pressure Mean [Right Arm] 76 84 Pulse Oximetry 95 97 Oxygen Delivery Method Mechanical Vent Mechanical Vent Fraction of Inspired Oxygen 100 GENERAL: Obtunded, airway in place HENT: Normocephalic, atraumatic. Oropharynx unremarkable. EYES: Normal conjunctiva. Sclera non-icteric. NECK: Supple. No nuchal rigidity. FROM. No JVD. RESPIRATORY: Clear to auscultation. CARDIAC: Regular rate, normal rhythm. Extremities warm and well perfused. Pulses equal. ABDOMEN: Soft, non-distended. No tenderness to palpation. No rebound or guarding. No masses. RECTAL: Deferred. MUSCULOSKELETAL: Chest examination reveals no tenderness. The back is symmetrical on inspection without obvious abnormality. There is no CVA tenderness to palpation. No joint edema. LOWER EXTREMITIES: Calves are equal size bilaterally and non-tender. No edema. No discoloration. NEURO: Normal sensorium. No sensory or motor deficits noted. SKIN: No rash or jaundice noted. Procedures Central Line Placement Left Femoral: Time Out Performed: Yes Patient Placed on Monitor/Pulse Ox: Yes MD Prep: mask, gown and gloves Central Line Prep: Povidone-Iodine 1%, Chlorhexidine scrub and sterile drapes applied Local Anesthetic: with epi and with bicarb Ultrasound Used for Placement: Yes Central Line Lumen Inserted: triple Post Procedure: sutured in place, good blood return, all ports aspirated, flushed, capped and sterile dressing applied Post Procedure X-Ray: tip of catheter in good position Patient Tolerated Procedure: well and no complications Complications: none Intubation Time out performed: Yes sedative: none paralytic: other (none) Laryngoscope: fiber optic video scope ET Tube Size: 7.5 ET Tube Uncuffed: No Tube Secured Depth (cm): 22 Tube Secured Location: lips Tube Placement Confirmation: visualized tube passing through cords, equal breath sounds bilaterally, no breath sounds over epigastrium and confirmation by capnometry Patient Tolerated Procedure: well Intubation Complications: none Course 0740: I was contacted by EMS en route to the ED and called a Code Robbie at this time. The patient will be placed in room B01. 0805: The patient was evaluated in room B01. A complete history and physical examination was performed. I intubated the patient at this time with the Respiratory Care team present. 0816: CPR was started at this time as the patient was asystolic. 0817: Code Blue was called for the patient at this time. 0824: Cardioversion was completed at this time. 0825:A pulse was obtained at this time and CPR was discontinued. 3 epis and 1 bicarb were pushed while the patient was asystolic. 0831: I discussed the patients case with Dr. Mcdonnell, ICU, who asked that a cooling protocol be started and that a central line be placed prior to evaluation. She asked that Cardiology be paged. 0840: The patient's family was brought in to speak to the patient at this time. 0845: I placed a central line in the patient's left femoral vein at this without any complications. 0907: I discussed the patients case with Dr. Amaya, Cardiology, who will evaluate the patient further. 0922: I discussed the patients case with Dr. Gonsalves, [facility], who will evaluate the patient for further management and care. 0916: I updated the patients family on the patients current lab and imaging results. They are amenable to the treatment plan. 1027: I updated the patients family on the patients current results. They verbalized understanding of the patients current prognosis. 1030: I discussed the patient's CT head results with the radiologist who stated the patient did not appear to have a brain bleed on closer examination of his scan. 1031: I updated Dr. Mcdonnell, ICU, on the patients current status and on my discussion with the patients family. Consultations Consultation #1: I discussed the patients case with Dr. Mcdonnell, ICU, who asked that a cooling protocol be started and that a central line be placed prior to evaluation. She asked that Cardiology be paged. Time: 08:31 Consultation #2: I discussed the patients case with Dr. Amaya, Cardiology, who will evaluate the patient further. Time: 09:07 Consultation #3: I discussed the patients case with Dr. Gonsalves, [facility], who will evaluate the patient for further management and care. Time: 09:22 Administered Medications Dopamine HCl/Dextrose (Dopamine / D5w) 400 mg in 250 mls @ 32.813 mls/hr IV .Q7H38M VERONICA; Protocol Stop: 03/23/19 09:14 Last Titration: 02/21/19 12:40 Dose: 0 mcg/kg/min, 0 mls/hr Documented by: [id number] Titration: 02/21/19 08:40 Dose: 15 mcg/kg/min, 98.4 mls/hr Documented by: [id number] Titration: 02/21/19 08:39 Dose: 10 mcg/kg/min, 65.6 mls/hr Documented by: [id number] Admin: 02/21/19 08:16 Dose: 5 mcg/kg/min, 32.8 mls/hr Documented by: [id number] Cosigned by: [id number] Norepinephrine Bitartrate 8 mg (/ Dextrose) 508 mls @ 106.68 mls/hr IV .Q4H46M VERONICA; Protocol Stop: 03/23/19 11:14 Last Titration: 02/21/19 13:35 Dose: 0.16 mcg/kg/min, 106.7 mls/hr Documented by: [id number] Admin: 02/21/19 12:20 Dose: 0.18 mcg/kg/min, 120 mls/hr Documented by: [id number] Cosigned by: [id number] Ioversol (Optiray 320 125ml) 119 ml IV ONCE PRN PRN Reason: Interaction Checking Stop: 02/25/19 09:43 Last Admin: 02/21/19 09:45 Dose: 119 ml Documented by: [id number] Multi-Ingredient Cream (Lacri-Lube) 1 appln OP Q2H PRN PRN Reason: eye protection Stop: 03/23/19 09:04 Last Admin: 02/21/19 12:41 Dose: 1 appln Documented by: [id number] Discontinued Medications Piperacillin Sod/Tazobactam Sod (Zosyn) 4.5 gm in 120 mls @ 240 mls/hr IV NOW ONE Stop: 02/21/19 09:04 Last Infusion: 02/21/19 10:12 Dose: 0 mls/hr Documented by: [id number] Admin: 02/21/19 09:04 Dose: 240 mls/hr Documented by: [id number] Vancomycin HCl 2,750 mg/ (Sodium Chloride) 555 mls @ 200 mls/hr IV NOW ONE; Protocol Stop: 02/21/19 11:21 Last Infusion: 02/21/19 12:51 Dose: 0 mls/hr Documented by: [id number] Admin: 02/21/19 09:04 Dose: 200 mls/hr Documented by: [id number] Levofloxacin/Dextrose (Levaquin/D5w) 750 mg in 150 mls @ 100 mls/hr IV NOW STA Stop: 02/21/19 10:04 Last Infusion: 02/21/19 12:51 Dose: 0 mls/hr Documented by: [id number] Admin: 02/21/19 09:15 Dose: 100 mls/hr Documented by: [id number] Magnesium Sulfate/Dextrose (Magnesium Sulfate / D5w) 1 gm in 100 mls @ 100 mls /hr IV Q1H VERONICA Stop: 02/21/19 13:29 Last Admin: 02/21/19 13:41 Dose: 100 mls/hr Documented by: [id number] Infusion: 02/21/19 13:40 Dose: 100 mls/hr Documented by: [id number] Admin: 02/21/19 12:40 Dose: 100 mls/hr Documented by: [id number] Infusion: 02/21/19 11:16 Dose: 100 mls/hr Documented by: [id number] Admin: 02/21/19 10:16 Dose: 100 mls/hr Documented by: [id number] Miscellaneous () Confirm Administered Dose 1 ea .ROUTE .STK-MED ONE Stop: 02/21/19 08:10 Last Admin: 02/21/19 09:06 Dose: Not Given Documented by: [id number] Perflutren Lipid Microsphere (Definity) 2 ml IV ONCE ONE Stop: 02/21/19 10:47 Last Admin: 02/21/19 10:47 Dose: 2 ml Documented by: [id number] Medical Decision Making Differential Diagnosis Differential diagnosis: Etiologies such as cardiac ischemia, aortic dissection, pulmonary embolism, pneumonia, pneumothorax, musculoskeletal, infections, pericarditis, myocarditis, esophageal rupture, gastrointestinal, as well as others were entertained. Medical Records Attestation: I reviewed the patient's medical records. Home Medications Current Medication List: was personally reviewed by me Laboratory Data Attestation: I reviewed the patient's lab results. Result diagrams: 02/21/19 11:40 02/21/19 11:40 Lab Results 02/21/19 02/21/19 02/21/19 Range/Units 08:15 08:20 08:20 WBC 10.95 H (4.8-10.8) K/uL RBC 3.65 L (4.7-6.1) M/uL Hgb 10.0 L (14.0-18.0) g/dL POC Hgb (14.0-18.0) g/dl Hct 36.4 L (42-52) % POC Hct (42-52) % MCV 99.7 (80-100) fL MCH 27.4 (25-34) pg MCHC 27.5 L (32-36) g/dL RDW Std Deviation 56.2 H (36.4-46.3) fL RDW Coeff of Liyah 15.2 H (11.5-14.5) % Plt Count 293 (130-400) K/uL MPV 10.4 (7.4-10.4) fL Immature Gran % (Auto) 1.4 % Neut % (Auto) 84.8 % Lymph % (Auto) 9.5 % [place] % (Auto) 3.9 % Eos % (Auto) 0.2 % Baso % (Auto) 0.2 % Immature Gran # (Auto) 0.15 H (0.00-0.02) K/uL Neut # (Auto) 9.29 H (1.4-6.5) K/uL Lymph # (Auto) 1.04 L (1.2-3.4) K/uL [place] # (Auto) 0.43 (0.11-0.59) K/uL Eos # (Auto) 0.02 (0-0.5) K/uL Baso # (Auto) 0.02 (0-0.2) K/uL Absolute Nucleated RBC 0.12 H (0-0) K/uL Nucleated RBC % (auto) 1.1 % PT 14.4 H (9.0-12.0) Seconds INR 1.4 H (0.9-1.1) APTT 29.0 (21.0-31.0) Seconds PTT Ratio 1.1 POC Sodium (135-144) mEq/L Sodium (136-145) mmol/L POC Potassium (3.3-5.0) mEq/L Potassium (3.5-5.1) mmol/L POC Chloride (101-112) mEq/L Chloride (98-107) mmol/L Carbon Dioxide (21-32) mmol/L POC Total CO2 (24-31) mEq/l Anion Gap (3-11) POC Anion Gap (16-25) mmol/L POC BUN (7-18) mg/dl BUN (7-18) mg/dl Creatinine (0.6-1.4) mg/dl POC Creatinine (0.6-1.3) mg/dl Est Cr Clr Drug Dosing Est GFR ( Amer) Est GFR (Non-Af Amer) BUN/Creatinine Ratio (10-20) Glucose (70-99) mg/dl POC Glucose (other) (70-99) mg/dl Lactate 15.6 H* (0.4-2.0) mmol/L Calcium (8.5-10.1) mg/dl POC Ioniz Calcium Ilia (1.12-1.32) mmol/l Phosphorus (2.5-4.9) mg/dl Magnesium (1.8-2.4) mg/dl Total Bilirubin (0.2-1) mg/dl AST (15-37) U/L ALT (12-78) U/L Alkaline Phosphatase (45-117) U/L Total Creatine Kinase (39-308) U/L CK-MB (CK-2) (0.5-3.6) ng/ml CK/CKMB % Calc Troponin I (0-0.045) ng/ml Total Protein (6.4-8.2) gm/dl Albumin (3.4-5.0) gm/dl Globulin (2.5-4.0) gm/dl Albumin/Globulin Ratio (0.9-2) 02/21/19 02/21/19 02/21/19 Range/Units 08:20 08:20 08:29 WBC (4.8-10.8) K/uL RBC (4.7-6.1) M/uL Hgb (14.0-18.0) g/dL POC Hgb 10.9 L (14.0-18.0) g/dl Hct (42-52) % POC Hct 32 L (42-52) % MCV (80-100) fL MCH (25-34) pg MCHC (32-36) g/dL RDW Std Deviation (36.4-46.3) fL RDW Coeff of Liyah (11.5-14.5) % Plt Count (130-400) K/uL MPV (7.4-10.4) fL Immature Gran % (Auto) % Neut % (Auto) % Lymph % (Auto) % [place] % (Auto) % Eos % (Auto) % Baso % (Auto) % Immature Gran # (Auto) (0.00-0.02) K/uL Neut # (Auto) (1.4-6.5) K/uL Lymph # (Auto) (1.2-3.4) K/uL [place] # (Auto) (0.11-0.59) K/uL Eos # (Auto) (0-0.5) K/uL Baso # (Auto) (0-0.2) K/uL Absolute Nucleated RBC (0-0) K/uL Nucleated RBC % (auto) % PT (9.0-12.0) Seconds INR (0.9-1.1) APTT (21.0-31.0) Seconds PTT Ratio POC Sodium 141 (135-144) mEq/L Sodium 144 (136-145) mmol/L POC Potassium 4.3 (3.3-5.0) mEq/L Potassium 4.4 (3.5-5.1) mmol/L POC Chloride 92 L (101-112) mEq/L Chloride 95 L (98-107) mmol/L Carbon Dioxide 31 (21-32) mmol/L POC Total CO2 33 H (24-31) mEq/l Anion Gap 18.0 H (3-11) POC Anion Gap 22.0 (16-25) mmol/L POC BUN 43 H (7-18) mg/dl BUN 37 H (7-18) mg/dl Creatinine 2.30 H (0.6-1.4) mg/dl POC Creatinine 1.9 H (0.6-1.3) mg/dl Est Cr Clr Drug Dosing Not Reportable Est GFR ( Amer) 35.2 Est GFR (Non-Af Amer) 30.4 BUN/Creatinine Ratio 16.0 (10-20) Glucose 149 H (70-99) mg/dl POC Glucose (other) 148 H (70-99) mg/dl Lactate (0.4-2.0) mmol/L Calcium 9.2 (8.5-10.1) mg/dl POC Ioniz Calcium Ilia 1.07 L (1.12-1.32) mmol/l Phosphorus 11.4 H (2.5-4.9) mg/dl Magnesium 3.2 H (1.8-2.4) mg/dl Total Bilirubin 0.7 (0.2-1) mg/dl AST 803 H (15-37) U/L ALT 661 H (12-78) U/L Alkaline Phosphatase 109 (45-117) U/L Total Creatine Kinase 104 (39-308) U/L CK-MB (CK-2) < 1.0 (0.5-3.6) ng/ml CK/CKMB % Calc TNP Troponin I 0.018 (0-0.045) ng/ml Total Protein 6.4 (6.4-8.2) gm/dl Albumin 2.5 L (3.4-5.0) gm/dl Globulin 3.9 (2.5-4.0) gm/dl Albumin/Globulin Ratio 0.6 L (0.9-2) Imaging Data Radiologist's Impression: Radiology results as stated below per my review and the radiologist's interpretation: SINGLE VIEW CHEST CLINICAL HISTORY: Intubation. Cardiac arrest. FINDINGS: An AP, portable, supine chest radiograph is obtained No prior studies are available for comparison at the time of dictation. The examination is degraded by portable technique, motion artifact, and patient rotation. An endotracheal tube has been placed. The tip terminates 2 cm above the serjio. The heart is enlarged. There is pulmonary vascular congestion. There are bilateral airspace opacities, most confluent at the right lung base. No large pleural effusion or pneumothorax is seen. There is a nondistracted right lateral 5th rib fracture. IMPRESSION: 1. Cardiomegaly with evidence of congestive failure. 2. Bilateral airspace opacities likely represent a component of interstitial edema. This is most confluent at the right lung base, and a superimposed infectious/inflammatory pneumonitis is not excluded. Clinical correlation will be required. 3. There is a nondistracted right lateral 5th rib fracture. 4. An endotracheal tube terminates 2 cm above the serjio. Electronically signed by: Herber Diggs M.D. 02/21/2019 8:[address] ANGIOGRAM OF THE CHEST; CT SCAN OF THE ABDOMEN AND PELVIS WITH IV CONTRAST CLINICAL HISTORY: Cardiac arrest. COMPARISON STUDY: Chest x-ray dated 02/21/2019. Abdominal CT dated 01/18/2015. TECHNIQUE: Following the IV administration of 119 of Optiray 320, CT angiogram of the chest is performed from the upper abdomen to the thoracic inlet utilizing the pulmonary embolus protocol. Images are reviewed in the axial, sagittal, coronal planes. 3-D MIPS images are created and assessed. Subsequently, CT scan of the abdomen and pelvis was performed from the lung bases to the proximal femora. Images are reviewed in the axial, sagittal, and coronal planes. IV contrast was administered without complication. A dose lowering technique was utilized adhering to the principles of ALARA. The examination is degraded by large body habitus, and by streak artifact from the body wall abutting the CT gantry. FINDINGS: CHEST: Thyroid: Imaged portions of the thyroid gland are normal in size and attenuation. Thoracic aorta: There is mild atherosclerotic calcification of the thoracic aorta, which is normal in caliber and demonstrates standard 3-vessel arch anatomy. No dissection is seen. Pulmonary vasculature: The pulmonary trunk is normal in caliber. There are no filling defects identified in the main, lobar, or proximal segmental pulmonary arteries to indicate pulmonary embolus. Evaluation of the peripheral branches is degraded by lack of contrast opacification and motion artifact. Heart: The heart is enlarged and without pericardial effusion. The coronary arteries are densely calcified. Lungs and pleural spaces: The endotracheal tube terminates at the level of the serjio. Evaluation of the lung parenchyma is compromised by motion artifact. There is airspace consolidation seen throughout the right lung, confluent at the right lung base. Patchy airspace consolidation is also seen throughout the left lung. Diffuse intralobular septal thickening is noted. No pneumothorax is identified. Mediastinum: There are numerous subcentimeter mediastinal lymph nodes. These are not pathologically enlarged by size criteria. Calcification containing nodes are noted. Eunice: There calcification containing hilar nodes. No hilar adenopathy is clearly identified. Axillae: There is no axillary lymphadenopathy. Bony thorax: There are acute right anterior 2nd through 6th rib fractures, as well as acute left anterior 2nd through 7th rib fractures. Several of these are mildly distracted. No lytic or blastic lesions are identified. Soft tissues: Gynecomastia is noted. ABDOMEN AND PELVIS: Liver: The contrast-enhanced liver is there is mild lumbosacral spondylosis. Enlarged, measuring 18.5 cm in length. Liver demonstrates diffusely imaged attenuation consistent with hepatic steatosis. There is no intrahepatic or ductal dilatation. The hepatic veins and portal veins are patent. Gallbladder: There are large calcified gallstones, with no CT evidence of acute cholecystitis. Spleen: Normal in size and attenuation. Pancreas: Unremarkable. Adrenal glands: Degenerative glands appear hyperemic which can be seen in the setting of hypovolemia/shock. Kidneys: The contrast enhanced kidneys are normal in size and without hydronephrosis. The kidneys enhance symmetrically. A 13 mm exophytic cyst is noted arising from the right kidney. Abdominal vasculature: The abdominal aorta is normal in course and caliber noting moderate atherosclerotic calcification. A left femoral central venous catheter is in place. Stomach and bowel: There is a tiny hiatal hernia. The stomach and duodenum otherwise normal in configuration. There is a large complex ventral hernia which contains nonobstructed bowel loops. No bowel obstruction is seen. There is moderate colonic diverticulosis without CT evidence of acute diverticulitis. Fecal retention is noted in the right colon. The appendix is well-visualized and normal. Peritoneum: There is no intraperitoneal free air or abdominal ascites. Lymphadenopathy: None. Pelvic viscera: The bladder is decompressed around a Boyce catheter and not well evaluated. The prostate gland and seminal vesicles are normal as imaged. Skeletal structures: There is mild lumbosacral spondylosis. No lytic or blastic lesions are seen. . IMPRESSION: 1. There is no evidence of central pulmonary embolus in the main, lobar, or proximal segmental pulmonary arteries. 2. The endotracheal tube terminates at the level of the serjio. This should be pulled back. 3. Cardiomegaly with evidence of congestive failure. 4. There is bilateral airspace consolidation, right greater than left. This is diffuse throughout the right lung and confluent at the right lung base. Although some of this likely represents interstitial edema, correlate clinically for evidence of superimposed pneumonia/aspiration pneumonitis. 5. There are numerous bilateral rib fractures as above. 6. There are no acute infectious or inflammatory findings in the abdomen or pelvis. 7. The adrenal glands appear hyperemic. This is a nonspecific finding and can be seen in the setting of hypovolemia/shock. 8. Hepatomegaly and hepatic steatosis. 9. Cholelithiasis. 10. There is a large complex ventral hernia which contains nonobstructed small bowel loops. 11. Moderate colonic diverticulosis without CT evidence of acute diverticulitis. 12. Additional findings as above Electronically signed by: Herber Diggs M.D. 02/21/2019 10:[address] SCAN OF THE BRAIN WITHOUT IV CONTRAST CLINICAL HISTORY: Status post cardiac arrest. COMPARISON STUDY: No priors. TECHNIQUE: Unenhanced axial CT scan of the brain is performed from the vertex to the skull base. A dose lowering technique was utilized adhering to the principles of ALARA. CT DOSE: 4388.66 mGy.cm FINDINGS: Brain parenchyma: There is diffuse loss of kevin-white matter differentiation consistent with diffuse cerebral edema. This effaces the cortical sulci and ventricles. No hemorrhage is clearly identified. Intracranial vessels appear hyperdense, likely due to diffuse edema. There is no midline shift. No extra- axial fluid collection is seen. There is crowding of the cerebellar tonsils at the foramen magnum. Ventricles, sulci, cisterns: Diminutive. See above. Intracranial vasculature: The visualized intracranial vasculature at the skull base are grossly unremarkable. 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 The calvarium is otherwise intact. Sinuses and mastoids: Trace fluid is seen in the left maxillary antrum. Moderate mucosal thickening is noted in the ethmoid sinuses. Trace mucosal thickening is seen in the left frontal sinus. There are large bilateral mastoid effusions. Orbits: The bony orbits are grossly intact. IMPRESSION: 1. Findings are consistent with diffuse cerebral edema. 2. There is no clear CT evidence of hemorrhage. 3. There is crowding of the cerebellar tonsils at the foramen magnum which may represent impending herniation. 4. Large mastoid effusions. Findings were discussed with Dr. Nascimento in the emergency department at the time of interpretation. Electronically signed by: Herber Diggs M.D. 02/21/2019 10:31 AM KUB CLINICAL HISTORY: Enteric tube placement. FINDINGS: An AP, portable, supine radiograph of the lower chest and upper abdomen is correlated with abdominal CT performed the same day 02/21/2019. An enteric tube has been placed. The tip of the tube projects over the proximal stomach. The side holes are at the level of the diaphragm. There is no evidence of bowel obstruction. The heart is enlarged. Airspace consolidation is noted throughout the right lower lung. Bilateral rib fractures are noted. IMPRESSION: 1. An enteric tube has been placed. The tip terminates below the diaphragm over the proximal stomach. The side holes are located at the level of the diaphragm and this should likely be advanced. 2. There is no evidence of bowel obstruction. 3. Dense airspace consolidation is seen at the right lung base. Electronically signed by: Herber Diggs M.D. 02/21/2019 10:43 AM ECG Data Attestation: I personally reviewed and interpreted this ECG as follows: Indication: other (cardiac arrest) Rate (beats per minute): 86 Rhythm: normal sinus Findings: + other (old septal infarct) and + RBBB Blood Pressure Blood Pressure Findings: Normal blood pressure MDM Narrative This is a 58-year-old male who presents emergency department complaining of cardiac arrest. Upon arrival to the emergency department the patient is a Rah airway in place. As he is only satting in the 70s this was removed and the patient was immediately intubated. He did have a period of bradycardia and then went into asystole in the emergency department. Pulses were returned after shocking the patient. The patient was started on magnesium as well as multiple antibiotics. I initiated cooling protocol however the patient went for a CAT scan of the head. This was concerning for diffuse cerebral edema. I did discuss this patient's dire situation with his family. At this point they would like to continue all interventions. He was discussed with the hospitalist as well as the receiving weigher and the fuels engineer. Central line was placed as above. Family was in agreement with the treatment plan. He was found to have an elevation in his white blood cell count as well as a lactic acid of 15. Patient was given 80 of Lasix for the pulmonary edema on his chest x-ray. Impression & Plan Cardiac arrest Critical Care Time Critical Care Time: Yes Total Critical Care Time: 90 I have personally spent 90 minutes of critical care time in the direct man agement of this patient. This includes bedside care, interpretation of diagnostic studies, and testing, discussion with consultants, patient, and family members, and other required patient management activities. This 90 minutes is in excess of all separately billable procedures. Discharge Plan Visit Data *Final* Discharge Date/Time: 02/21/19 10:38 Chief Complaint: Cardiac Arrest/CPR ED Provider: Hubert Nascimento Discharge Problem: Cardiac arrest Patient Disposition: Admitted As Inpatient Discharge Instructions Interventions: ED Discharge Assessment Last Done: 02/21/19 10:38 The scribe's documentation has been prepared under my direction and personally reviewed by me in its entirety. I confirm that the note above accurately reflects all work, treatment, procedures, and medical decision making performed by me.
--- NOTE | 2019-02-21 14:18 | Discharge Summary ---
Date of Service February 21, 2019 Admission HPI Per Admitting Provider This is a 58 yo M with PMHx of morbid obesity, acute hypoxic respiratory failure, DM II, COPD on chronic O2, chronic afib on xarelto s/p cardiac arrest and resuscitation. The patient's family was seen in the ER waiting room, including multiple daughters, son, wyatt and brother who supported the history. The patient's brother notes that he has traveled from [place] and arrived in the home yesterday. Wyatt notes that the patient has been having worsening shortness of breath x3 days. They state that yesterday the patient appeared "delirious and out of things". He was having increased work of breathing with minimal activity yesterday. They used a home pulse ox which revealed bradycardia with a heart rate in the 50s yesterday, and oxygenation in the 80s. At that point in time it was in the evening and patient was placed on nasal CPAP, as he has not been able to tolerate CPAP mask due to facial shape. This improved pulse ox readings, and the patient reported that he felt fine and wanted to stay home. They did discuss possibly going to a hospital last evening however the patient thought that he would try through the night. Patient's fianc sleeps in the same room as the patient and reports that last time known well was at 0300. At approximately 6 AM patient was found to be unresponsive by wyatt, brother proceeded to perform CPR. Prolonged transport on the way to [facility] occurred and pt was not intubated during that time due to difficult intubation. Intubation successful here in the ER. Patient's family notes that he was recently admitted from February 02- at [facility] for fluid overload and new onset A. fib where he was placed on xarelto. The patient underwent total of 9 rounds of epinephrine, bicarb, and is now being maintained on dopamine drip. He is being diuresed with IV Lasix as this appears to be partially due to pulmonary congestion. The patient has been administered IV Zosyn, vancomycin until infectious work-up ruled out. Admit to the ICU Principal Diagnosis Cause of of cerebral edema from and likely is cerebral herniation time of is 1350 time 02/21/2019 Director Of [employer] was notified No autopsy performed Discharge Exam Patient was examined without spontaneous respirations or heart tones for 60 seconds after ventilator was discontinued patient was pronounced at 1350 hrs. Discharge Data Allergies Allergy/AdvReac Type Severity Reaction Status Date / Time No Known Allergies Allergy Mild Unverified 12/26/07 07:57 Consultations 02/21/19 08:33 Consult Technology Lead Stat 02/21/19 09:10 Consult Cardiology Stat 02/21/19 10:36 ED Decision to Admit Stat 02/21/19 11:12 Consult Case Management - Discharge Planning Routine Consult Technology Lead Routine Ordered Studies 02/21/19 08:34 CT abd pelvis IV con only Stat CT angio chest PE protocol Stat CT head/brain wo con Stat Hospital Course (1) Sudden cardiac arrest: - Admit to ICU - S/p cardiac arrest now undergoing therapeutic hypothermia - Underwent total of 9 rounds of epinephrine, bicarb, and is now being maintained on dopamine drip. - Maintain ET tube - Being diuresed with IV Lasix as this appears to be partially due to pulmonary congestion. - Starting IV Zosyn, vancomycin until infectious work-up ruled out. - CT head revealing cerebral edema per radiologist - Follow CT abd/pelvis - Discussed with numerous family members who are in the ER waiting room privately by Dr. Nascimento regarding CT imaging results which were called to him directly from the radiologist showing poor prognosis with possible subarachnoid bleed and cerebral edema. palliative care, patient decompensated shortly after 130 family is at the bedside they agreed not to pursue aggressive measures he progressively bradycardia down had low blood pressure pulse oximetry they agreed to stopping ventilator he had no spontaneous heart tones were breath sounds and was pronounced at 1350 hrs. (2) Lactic acidosis: - Elevated at 15.6 upon arrival, now s/p resuscitation (3) Acute and chronic respiratory failure with hypoxia: - Hx of such secondary to morbid obesity (4) COPD (chronic obstructive pulmonary disease): - Hx of such, uses ventolin as outpatient - Maintains on 3L O2 at baseline, CPAP HS (5) Afib: - Chronic, dx earlier this month during hospital stay at [facility] from February 02-hold with possible brain hemmorhage (6) Morbid obesity: - weight upon admit was over 175 kg, BMI not obtained. (7) SABRA (obstructive sleep apnea): - CPAP as above (8) HTN (hypertension): - - Dopamine infusion on for initially hypotensive. S/p multiple rounds of epi as above. - Takes metoprolol succinate at home, last dose yesterday (9) Obesity hypoventilation syndrome: (10) Elevated transaminase level: -Shock liver AST = 803 and FMP=156, INR = 1.4, trend morning LFTs Total Time Total Time Spent Total Time Spent (In Minutes): Less than 30 minutes Discharge Plan Discharge Items Patient Disposition: Reason For Visit: CARDIAC ARREST/CPR Follow-up/Referrals: Donnie Nayak [Primary Care Provider] - Prescriptions: No Action Albuterol (Proair Hfa) AEROSOL,SOLN 2 puff Inhalation PRN (Reason: Shortness of Breath) Qty: 0 RF: 0 FLUTICASONE PROP/SALMETEROL (Advair Diskus 250/50 60 Dose) 1 EA AEROSOL,POWDR 1 puff Inhalation BID Qty: 0 RF: 0 FUROSEMIDE (Lasix) 80 MG tablet 80 mg PO DAILY Qty: 0 RF: 0 HOME O2 THERAPY (Oxygen) gas 4 liters NA UD Qty: 0 RF: 0 Metoprolol Succ (Toprol Xl) (Toprol-Xl ) 100 MG [id number] 100 mg PO DAILY Qty: 0 RF: 0 Nitroglycerin (Nitrostat) 0.4 MG tablet 0.4 mg UT PRN Qty: 0 RF: 0 Admission Data Admit Date/Time: 02/21/19 09:45 Attending Provider: Jose Elias Abdullahi Admit Provider: Jose Elias Abdullahi Primary Care Provider: Donnie Nayak Other Providers: Mathew Mcdonnell ; Fermin Amaya ; Redd Sanchez Service: Intensive Care Unit
[2019-02-21] MEDS ORDERED: SUCCINYLCHOLINE CHLORIDE 20 MG/ML 10 ML VIAL IV ONE (14:49)
[2019-02-21] MEDS ORDERED: SODIUM CHLORIDE 0.9% 10ML FLUSH IV ONE (14:49)
[2019-02-21] MEDS ORDERED: CALCIUM CHLORIDE 10% 10 ML SYR IV ONE (14:49)
[2019-02-21] MEDS ORDERED: DOPamine 400MG / 250ML D5W IV ONE (14:49)
[2019-02-21] MEDS ORDERED: ATROPINE SULFATE 0.1 MG/ML 10ML SYR IV ONE (14:49)
[2019-02-21] MEDS ORDERED: SODIUM BICARB 8.4% INJ 50 MEQ/50 ML SYR IV ONE (14:49)
[2019-02-21] MEDS ORDERED: AMIODARONE HCL INJ 50 MG/ML 3 ML VIAL IV ONE (14:49)
[2019-02-21] MEDS ORDERED: FUROSEMIDE 10 MG/ML 10 ML VIAL IV ONE (14:49)
[2019-02-21] MEDS ORDERED: ETOMIDATE 2 MG/ML 20 ML VIAL IV ONE (14:49)
== END 2019-02-21 14:50 | disposition expired | DRG 80 ==
LOC: ED 08:04 → 1E 09:45